=== PATIENT | male | born 1975 | race African-American/Black ===

== ENCOUNTER 2018-04-17 16:22 | Emergency (ER) | payer SELFPAY, BC | END 2018-04-17 17:55 | disposition left against medical advice (07) | LOC: E/R 16:22 | DX: Z53.21 Procedure and treatment not carried out due to patient leaving prior to being seen by health care provider (principal) ==

== ENCOUNTER 2018-04-17 23:17 | Observation (INO) | payer BC ==
[2018-04-18 02:09] LABS: ADD MAN DIFF? NO
[2018-04-18 02:10] LABS: WHITE BLOOD COUNT 7.9 10^3/ul (4.8-10.8)
[2018-04-18 02:10] LABS: BASOPHILS % 0.5 % (0.0-2.0); EOSINOPHILS # 0.1 10^3/ul (0.0-0.5); EOSINOPHILS % 0.6 % (0.0-7.0); HEMATOCRIT 41.8 % (42.0-52.0); HEMOGLOBIN 14.1 g/dl (14.0-18.0); LYMPHOCYTES # 3.1 10^3/ul (0.8-2.9); LYMPHOCYTES % 38.8 % (15.0-51.0); MEAN CORPUSCULAR HEMOGLOBIN 29.3 pg (29.0-33.0); MEAN CORPUSCULAR HGB CONC 33.7 g/dl (32.0-37.0); MEAN CORPUSCULAR VOLUME 86.9 fl (82.0-101.0); MEAN PLATELET VOLUME 10.8 fl (7.4-10.4); MONOCYTE # 0.7 10^3/ul (0.3-0.9); MONOCYTES % 8.2 % (0.0-11.0); NEUTROPHIL # 4.1 10^3/ul (1.6-7.5); NEUTROPHILS % 51.8 % (39.0-77.0); PLATELET COUNT 159 10^3/UL (140-415); RED BLOOD COUNT 4.81 10^6/ul (4.70-6.10); RED CELL DISTRIBUTION WIDTH 12.8 % (11.5-14.5)
[2018-04-18 02:27] LABS: ANION GAP 11 (8-16); BLOOD UREA NITROGEN 8 mg/dl (7-20); CALCIUM 9.4 mg/dl (8.4-10.2); CARBON DIOXIDE 31 mmol/L (21-31); CHLORIDE 105 mmol/L (97-110); CREATINE KINASE 115 IU/L (23-200); CREATININE 0.96 mg/dl (0.61-1.24); GLUCOSE 104 mg/dl (70-220); POTASSIUM 3.8 mmol/L (3.5-5.1); SODIUM 143 mmol/L (135-144)
[2018-04-18] MEDS: ASPIRIN 81 MG TAB PO (02:32)
[2018-04-18] MEDS: NITROGLYCERIN 2% 1 GM OINT PKT TD (02:33)
[2018-04-18] MEDS: PANTOPRAZOLE 40 MG INJ IV (02:33)
[2018-04-18 02:38] LABS: TROPONIN-I < 0.010 ng/ml (0.000-0.120)
[2018-04-18 02:39] LABS: CK INDEX 0.5; CK-MB 0.53 ng/ml (0.0-2.4); TROPONIN-I < 0.010 ng/ml (0.000-0.120)
[2018-04-18] MEDS: AL HYDROX/MG HYDROX/SIMETH 30 ML CUP PO (08:56)
[2018-04-18 09:43] LABS: CREATINE KINASE 91 IU/L (23-200)
[2018-04-18 09:52] LABS: CK INDEX 0.4; CK-MB 0.39 ng/ml (0.0-2.4); TROPONIN-I < 0.010 ng/ml (0.000-0.120)
== END 2018-04-18 12:29 | disposition home or self-care (01) ==
LOC: MS3 04-18 06:17 → E/R 23:17 → MS3 04-18 03:19
DX: R07.9 Chest pain, unspecified (principal); K21.9 Gastro-esophageal reflux disease without esophagitis; J45.909 Unspecified asthma, uncomplicated; I48.91 Unspecified atrial fibrillation; I48.92 Unspecified atrial flutter; Z79.82 Long term (current) use of aspirin; Z88.6 Allergy status to analgesic agent; Z88.1 Allergy status to other antibiotic agents
CPT/HCPCS: 36415; 71045; 80048; 82550; 82553; 84484; 85025; 93005; 96374; 99285-25

== ENCOUNTER 2018-12-25 02:58 | Emergency (ER) | payer SELFPAY | END 2018-12-25 03:14 | disposition left against medical advice (07) | LOC: FTE 02:58 | DX: Z53.21 Procedure and treatment not carried out due to patient leaving prior to being seen by health care provider (principal) ==

== ENCOUNTER 2019-01-27 20:10 | Emergency (ER) | payer MEDICAID ==
[2019-01-27] MEDS ORDERED: KETOROLAC 15 MG INJ IV (22:06)
[2019-01-27] MEDS: FAMOTIDINE 20 MG INJ IV (22:20)
[2019-01-27 22:22] LABS: ADD MAN DIFF? NO
[2019-01-27 22:23] LABS: WHITE BLOOD COUNT 7.1 10^3/ul (4.8-10.8)
[2019-01-27 22:23] LABS: BASOPHILS % 0.6 % (0.0-2.0); EOSINOPHILS # 0.1 10^3/ul (0.0-0.5); EOSINOPHILS % 1.5 % (0.0-7.0); HEMATOCRIT 41.6 % (42.0-52.0); LYMPHOCYTES # 3.3 10^3/ul (0.8-2.9); LYMPHOCYTES % 46.6 % (15.0-51.0); MEAN CORPUSCULAR HEMOGLOBIN 29.2 pg (29.0-33.0); MEAN CORPUSCULAR HGB CONC 33.7 g/dl (32.0-37.0); MEAN CORPUSCULAR VOLUME 86.7 fl (82.0-101.0); MEAN PLATELET VOLUME 10.6 fl (7.4-10.4); MONOCYTE # 0.7 10^3/ul (0.3-0.9); MONOCYTES % 9.1 % (0.0-11.0); NEUTROPHILS % 42.1 % (39.0-77.0); PLATELET COUNT 174 10^3/UL (140-415); RED CELL DISTRIBUTION WIDTH 12.8 % (11.5-14.5)
[2019-01-27 22:35] LABS: ADD UMIC YES; UR ASCORBIC ACID NEGATIVE (NEGATIVE); UR BILIRUBIN (Dip) NEGATIVE (NEGATIVE); UR BLOOD (Dip) 1+ mg/dL (NEGATIVE); UR CLARITY CLEAR (CLEAR); UR COLOR COLORLESS (YELLOW); UR GLUCOSE (Dip) NEGATIVE (NEGATIVE); UR KETONES (Dip) NEGATIVE (NEGATIVE); UR LEUKOCYTE ESTERASE (Dip) NEGATIVE Leu/ul (NEGATIVE); UR NITRITE (Dip) NEGATIVE (NEGATIVE); UR RBC 3 /HPF (0-5); UR SPECIFIC GRAVITY (Dip) 1.009 (1.003-1.030); UR TOTAL PROTEIN (Dip) NEGATIVE (NEGATIVE); UR UROBILINOGEN (Dip) NEGATIVE (NEGATIVE); UR WBC 0 /HPF (0-5)
[2019-01-27] MEDS: SOD CHLORIDE 0.9% 1,000 ML IV (22:37)
[2019-01-27 22:40] LABS: ALANINE AMINOTRANSFERASE 45 IU/L (13-69); ALBUMIN 4.5 g/dl (3.3-4.9); ALKALINE PHOSPHATASE 59 IU/L (42-121); ANION GAP 10 (5-13); ASPARTATE AMINO TRANSFERASE 41 IU/L (15-46); BILIRUBIN,INDIRECT 0.9 mg/dl (0-1.1); BILIRUBIN,TOTAL 0.9 mg/dl (0.2-1.3); BLOOD UREA NITROGEN 14 mg/dl (7-20); CALCIUM 9.7 mg/dl (8.4-10.2); CARBON DIOXIDE 31 mmol/L (21-31); CHLORIDE 101 mmol/L (97-110); CREATININE 0.98 mg/dl (0.61-1.24); Estimated GFR > 60 mL/min (>60); GLUCOSE 103 mg/dl (70-220); LIPASE 64 U/L (23-300); SODIUM 142 mmol/L (135-144); TOTAL PROTEIN 7.5 g/dl (6.1-8.1)
== END 2019-01-27 23:42 | disposition home or self-care (01) ==
LOC: FTE 20:10
DX: R10.11 Right upper quadrant pain (principal)
CPT/HCPCS: 36415; 74176; 80053; 81001; 83690; 85025; 96361; 96374; 99285-25

== ENCOUNTER → 2019-06-05 | Emergency (ER) | payer SELFPAY, MEDICAID ==
[2019-06-05 08:00] LABS: ADD UMIC YES; UR ASCORBIC ACID NEGATIVE (NEGATIVE); UR BILIRUBIN (Dip) NEGATIVE (NEGATIVE); UR BLOOD (Dip) 2+ mg/dL (NEGATIVE); UR CLARITY CLEAR (CLEAR); UR COLOR COLORLESS (YELLOW); UR GLUCOSE (Dip) NEGATIVE (NEGATIVE); UR KETONES (Dip) NEGATIVE (NEGATIVE); UR LEUKOCYTE ESTERASE (Dip) NEGATIVE Leu/ul (NEGATIVE); UR NITRITE (Dip) NEGATIVE (NEGATIVE); UR RBC 0 /HPF (0-5); UR SPECIFIC GRAVITY (Dip) 1.001 (1.003-1.030); UR TOTAL PROTEIN (Dip) NEGATIVE (NEGATIVE); UR UROBILINOGEN (Dip) NEGATIVE (NEGATIVE); UR WBC 0 /HPF (0-5)
== END | disposition home or self-care (01) ==
LOC: FTE 07:10
DX: R31.21 Asymptomatic microscopic hematuria (principal)
CPT/HCPCS: 81001; 99283